=== PATIENT | male | born 1955 | race Asian ===

== ENCOUNTER 2020-12-25 03:05 | Day surgery (SDC) | payer BC, SELFPAY ==
[2020-12-18 15:19] VITALS: BMI 25.0
--- NOTE | 2020-12-25 10:01 | P.PNAN_ITS ---
Anes - Initial Pre Proc Eval Procedure: Operation Date: 12/25/20 11:00 Proposed Procedures p Esophagogastroduodenoscopy - Adrián Saul MD Date/Time: 12/25/20 10:01 Surgeon: Adrián Saul MD Pre Op Diagnosis: GERD Patient Data Age: 65 Gender: M Height: 1.78 m Weight: 79 kg Allergies Allergy/AdvReac Type Severity Reaction Status Date / Time No Known Allergies Allergy Verified 12/25/20 10:15 Home Medications Medication Instructions Recorded Confirmed Type No Home Medications 12/18/20 12/25/20 History Patient hx anesthesia problems: none Family hx anesthesia problems: none [facility] Past Medical History Medical History (Updated 12/25/20 @ 10:01 by Dean Mason MD) Chronic GERD Social History Social History (System 07/29/20 @ 14:01 by Catherine Cook) Years smoked: 10 Smoking status: Former smoker Tobacco type: cigarettes Smoking end date: 05/22/99 Alcohol intake: current Drinks per week: 7 Alcohol use details: beer Living arrangements: with family Spiritual care concerns: No Anes - Eval Final PreProcedure Day of Procedure 12/25/20 10:01 Patient weight: normal Heart: regular rate and rhythm Lungs: clear to auscultation and normal air movement Airway: Mallampati scale class II Neurological: alert and oriented Last oral intake: >/= 8 hours ASA classification: II Emergent: no Anesthetic plan: proceed Anesthesia type and monitoring: general GIVS Informed Consent: The patient's anesthetic plan and its attendant risks and benefits were discussed with the patient/family/POA. Questions were solicited and answers provided to the satisfaction of the patient/family/POA.
[2020-12-25] MEDS: LACTATED RINGERS 1,000 ML 150 ML IV CONT (10:14)
[2020-12-25 10:18] VITALS: BP 133/90; PULSE 71; RESP 16; TEMP 36; O2SAT 100
--- NOTE | 2020-12-25 11:05 | WPDGICN ---
Assessment and Plan Assessment and plan (1) Chronic GERD: Code(s): K21.9 - Gastro-esophageal reflux disease without esophagitis Status: Acute (2) Throat pain: Code(s): R07.0 - Pain in throat Status: Acute Assessment and Plan: Patient has atypical throat pain which is burning in nature. It appears to improve with PPI therapy suggesting this is acid reflux in nature. Plan to evaluate with EGD. If symptoms persist ENT evaluation could be an alternative approach GI Consult Note Consult date/time: 12/25/20 11:05 HPI: Sandra Sousa is a 65 year old male Presents for EGD. Patient reports 4 episodes of burning throat pain this last year. Typically burning will last for several hours. States symptoms have improved on being placed on omeprazole. Patient denies any difficulty swallowing. He has no substernal heartburn. He has taken PPI therapy intermittently takes no other specific: Medications. Family history is noncontributory. Patient denies any weight loss or bleeding. Presents today for EGD because of this discomfort. Review of Systems Review of Systems: All systems reviewed & are unremarkable except as noted in HPI and below PMFSH Past Medical History Medical History (Updated 12/25/20 @ 11:08 by Adrián Saul MD) Chronic GERD Social History Social History (System 07/29/20 @ 14:01 by Catherine Cook) Years smoked: 10 Smoking status: Former smoker Tobacco type: cigarettes Smoking end date: 05/22/99 Alcohol intake: current Drinks per week: 7 Alcohol use details: beer Living arrangements: with family Spiritual care concerns: No Meds Home Medications and Allergies Home Medications Medication Instructions Recorded Confirmed Type No Home Medications 12/18/20 12/25/20 History Allergies Allergy/AdvReac Type Severity Reaction Status Date / Time No Known Allergies Allergy Verified 12/25/20 10:15 Vital Signs Vital Signs - 24 hr 12/25/20 10:18 Temperature 96.8 F L Pulse Rate 71 Respiratory Rate 16 Blood Pressure 133/90 Pulse Oximetry 100 Exam Narrative: Physical exam reveals patient to be alert. Vital signs stable. HEENT exam is unremarkable. Patient is anicteric. Lungs are clear to auscultation and percussion. Heart is without murmur or extra sounds. Abdominal exam bowel sounds are present soft nontender with no organomegaly.
[2020-12-25] MEDS: BENZOCAINE (*SP) 60 ML SPRAY CAN (HURRICAINE) 1 SPRAY MUCOUS MEM (11:12)
[2020-12-25 11:25] VITALS: BP 105/73; PULSE 69; RESP 13; O2SAT 98
[2020-12-25 11:35] VITALS: BP 109/78; PULSE 60; RESP 14; O2SAT 97
[2020-12-25 11:45] VITALS: BP 124/87; PULSE 55; RESP 19; O2SAT 99
== END 2020-12-25 11:57 | disposition home or self-care (01) ==
PROVIDERS: PCP Family Medicine Adolescent Medicine; Visit Provider Internal Medicine Gastroenterology
PROC: 0DJ08ZZ Inspection of Upper Intestinal Tract, Via Natural or Artificial Opening Endoscopic (ICD-10-PCS; CPT 43235; principal; 2020-12-25 11:00)
DX: K21.9 Gastro-esophageal reflux disease without esophagitis (principal); R07.0 Pain in throat; Z87.891 Personal history of nicotine dependence
CPT/HCPCS: 43239; 87081; J2704; J7120

== ENCOUNTER 2022-03-03 02:16 | Day surgery (SDC) | payer BC, SELFPAY ==
[2022-02-14 08:54] VITALS: BMI 24.5
[2022-03-03 07:48] VITALS: BP 125/75; PULSE 65; RESP 20; TEMP 36.2; O2SAT 100
[2022-03-03] MEDS: LACTATED RINGERS 1,000 ML 150 ML IV CONT (07:57)
--- NOTE | 2022-03-03 08:18 | P.HP_ITS ---
History of Present Illness History of Present Illness Consent: Risks, benefits, and alternatives have been discussed and questions answered. Patient agrees to proceed with procedure. Chief complaint: neoplasm screening Narrative: Sandra Sousa is a 66 year old male Presents for screening colonoscopy. Patient's current weight appetite and bowel movements are normal. He denies abdominal pain. Patient has had no bleeding. Patient's previous colonoscopy 2009 was unremarkable. Patient presents today for screening colonoscopy. Review of Systems Review of Systems: Review of systems noncontributory. [facility] Past Medical History Medical History Chronic GERD Family History Family History Grandparent Lung cancer Social History Social History (Updated 01/03/22 @ 15:02 by Suzy Flores MA) Smoking packs per day: 0.5 Smoking cigarettes per day: 10.0 Years smoked: 10 Smoking pack-years: 5.00 Smoking status: Former smoker Tobacco type: cigarettes Smoking end date: 05/22/99 Alcohol intake: current Drinks per week: 1 Alcohol use details: BEER Substance use: never Substance use type: does not use Living arrangements: with family Gender identity (if verbalized by the patient): Male Spiritual care concerns: No Agree to blood products: Yes Meds Home Medications and Allergies Home Medications Medication Instructions Recorded Confirmed Type diclofenac sodium 75 mg 75 mg PO BID #60 tabs 11/03/21 02/14/22 Rx tablet,delayed release sodium,potassium,mag sulfates 17.5 See Rx Instructions PO .COMPLEX 01/12/22 02/14/22 Rx gram-3.13 gram-1.6 gram oral soln #354 mL (Suprep Bowel Prep Kit) atorvastatin 20 mg tablet 20 mg PO DAILY #90 tabs 01/25/22 02/14/22 Rx tadalafil 5 mg tablet 5 mg PO DAILY 02/14/22 02/14/22 History Allergies Allergy/AdvReac Type Severity Reaction Status Date / Time No Known Allergies Allergy Verified 03/03/22 07:48 Vital Signs Vital Signs - 24 hr 03/03/22 07:48 Temperature 97.2 F L Pulse Rate 65 Respiratory Rate 20 Blood Pressure 125/75 Pulse Oximetry 100 Oxygen Delivery Room Air Exam Narrative: Physical exam reveals patient be alert. Vital signs stable. HEENT exam is unremarkable. Patient is anicteric. Lungs are clear to auscultation and percussion. Heart is without murmur or extra sounds. Abdomen bowel sounds present soft nontender with no organomegaly. Digital external rectal exam is normal. Assessment and Plan Assessment and plan (1) Encounter for screening colonoscopy: Code(s): Z12.11 - Encounter for screening for malignant neoplasm of colon Status: Acute Assessment and Plan: Patient presents for screening colonoscopy. Appears to be at average risk for colon polyps.
--- NOTE | 2022-03-03 08:23 | P.PNAN_ITS ---
Anes - Initial Pre Proc Eval Procedure: Operation Date: 03/03/22 09:00 Proposed Procedures p Screening Colonoscopy - Adrián Saul MD Date/Time: 03/03/22 08:23 Surgeon: Adrián Saul MD Pre Op Diagnosis: neoplasm screening Patient Data Age: 66 Gender: M Height: 1.78 m Weight: 75.4 kg Last Vital Signs Temp 97.2 F L 03/03/22 07:48 Pulse 65 03/03/22 07:48 Resp 20 03/03/22 07:48 BP 125/75 03/03/22 07:48 Pulse Ox 100 03/03/22 07:48 O2 Del Method Room Air 03/03/22 07:48 Allergies Allergy/AdvReac Type Severity Reaction Status Date / Time No Known Allergies Allergy Verified 03/03/22 07:48 Home Medications Medication Instructions Recorded Confirmed Type diclofenac sodium 75 mg 75 mg PO BID #60 tabs 11/03/21 02/14/22 Rx tablet,delayed release sodium,potassium,mag sulfates 17.5 See Rx Instructions PO .COMPLEX 01/12/22 02/14/22 Rx gram-3.13 gram-1.6 gram oral soln #354 mL (Suprep Bowel Prep Kit) atorvastatin 20 mg tablet 20 mg PO DAILY #90 tabs 01/25/22 02/14/22 Rx tadalafil 5 mg tablet 5 mg PO DAILY 02/14/22 02/14/22 History Patient hx anesthesia problems: none Family hx anesthesia problems: none Results Review: All pre-operative results and documents have been reviewed as part of the pre- operative evaluation. [facility] Past Medical History Medical History Chronic GERD Family History Family History Grandparent Lung cancer Social History Social History (Updated 01/03/22 @ 15:02 by Suzy Flores MA) Smoking packs per day: 0.5 Smoking cigarettes per day: 10.0 Years smoked: 10 Smoking pack-years: 5.00 Smoking status: Former smoker Tobacco type: cigarettes Smoking end date: 05/22/99 Alcohol intake: current Drinks per week: 1 Alcohol use details: BEER Substance use: never Substance use type: does not use Living arrangements: with family Gender identity (if verbalized by the patient): Male Spiritual care concerns: No Agree to blood products: Yes Anes - Eval Final PreProcedure Day of Procedure 03/03/22 08:23 Patient weight: normal Heart: regular rate and rhythm Lungs: clear to auscultation Airway: Mallampati scale class II Neurological: alert and oriented Last oral intake: >/= 8 hours ASA classification: II Emergent: no Anesthetic plan: proceed Anesthesia type and monitoring: general GIVS and standard monitoring Results Review: All pre-operative results and documents have been reviewed as part of the pre- operative evaluation. Informed Consent: The patient's anesthetic plan and its attendant risks and benefits were discussed with the patient/family/POA. Questions were solicited and answers provided to the satisfaction of the patient/family/POA.
[2022-03-03 09:09] VITALS: BP 89/59; PULSE 60; RESP 16; O2SAT 96
[2022-03-03 09:19] VITALS: BP 95/60; PULSE 60; RESP 17; O2SAT 95
[2022-03-03 09:29] VITALS: BP 107/79; PULSE 63; RESP 17; O2SAT 100
== END 2022-03-03 09:41 | disposition home or self-care (01) ==
PROVIDERS: PCP Family Medicine Adolescent Medicine; Visit Provider Internal Medicine Gastroenterology
PROC: 0DJD8ZZ Inspection of Lower Intestinal Tract, Via Natural or Artificial Opening Endoscopic (ICD-10-PCS; CPT 45378; principal; 2022-03-03 09:00)
DX: Z12.11 Encounter for screening for malignant neoplasm of colon (principal); K64.8 Other hemorrhoids; K57.30 Diverticulosis of large intestine without perforation or abscess without bleeding; Z87.891 Personal history of nicotine dependence
CPT/HCPCS: 45378; J2704; J7120

== ENCOUNTER → 2022-08-29 15:48 | Outpatient (CLI) | payer BC, SELFPAY ==
--- NOTE | ~2022-08-29 | XR_ITS ---
XR lumbar spine 2-3V 08/29/2022 16:09 Indication: 6 weeks of back pain Procedure: 3 views lumbar spine Comparison: Chronic wedge-shaped deformities of L1, L2, L3 and L4. There is disc narrowing all lumbar levels. Findings: Chronic wedge-shaped deformities of L1, L2, L3 and L4. There is disc narrowing all lumbar l evels. There are hypertrophic spinous processes. Prominent ventral osteophytes at multiple levels. No acute fracture or traumatic alignment. Impression: 1: Severe lumbar spondylosis. Reviewed, dictated and finalized at location B. Impression: 1: Severe lumbar spondylosis.
== END ==
PROVIDERS: PCP Family Medicine Adolescent Medicine; Visit Provider Family Medicine Adolescent Medicine
DX: M53.3 Sacrococcygeal disorders, not elsewhere classified (principal); M47.896 Other spondylosis, lumbar region
CPT/HCPCS: 72100

== ENCOUNTER 2024-01-12 11:53 | Outpatient (CLI) | payer BC, SELFPAY ==
--- NOTE | ~2024-01-12 | XR_ITS ---
3 VIEWS LUMBAR SPINE Ordering provider: Mayela King DO History: . lbp with right leg pain forn 4 days from golfing . Comparison: August 29, 2022 FINDINGS: VERTEBRAL BODIES: No visible fracture or subluxation. Degenerative changes of the spine. DISK SPACES: Narrowing of L2-L3, L3-L4, L4-L5 and L5-S1. Multilevel facet joint disease. SOFT TISSUES: Normal. IMPRESSION: No acute osseous abnormality lumbar spine. Multilevel degenerative disc disease. Reviewed, dictated and finalized at location A.
== END 2024-01-12 11:54 ==
LOC: MICIMG 11:54
PROVIDERS: PCP Family Medicine; Visit Provider Family Medicine
DX: M79.661 Pain in right lower leg (principal); M51.36 Other intervertebral disc degeneration, lumbar region
CPT/HCPCS: 72100